=== PATIENT | female | born 1965 | race Asian ===

== ENCOUNTER → 2021-01-09 10:16 | Outpatient (CLI) | payer BC, SELFPAY ==
[2021-01-09] MEDS: COVID-19 VACC #1, MRNA(MOD) 100 MCG/0.5 ML VIAL IM (10:23)
== END ==
PROVIDERS: Visit Provider Internal Medicine
DX: Z23 Encounter for immunization (principal)
CPT/HCPCS: 0011A; 91301

== ENCOUNTER → 2021-02-07 10:07 | Outpatient (CLI) | payer BC, SELFPAY ==
[2021-02-07] MEDS: COVID-19 VACC #2, MRNA(MOD) 100 MCG/0.5 ML VIAL IM (10:22)
== END ==
PROVIDERS: Visit Provider Internal Medicine
DX: Z23 Encounter for immunization (principal)
CPT/HCPCS: 0012A; 91301